=== PATIENT | female | born 1980 | race Caucasian/White ===

== ENCOUNTER 2024-04-12 14:21 | Emergency (ER) | payer OTHER, SELFPAY ==
[2024-04-12 14:30] VITALS: BP 161/95
[2024-04-12 15:11] LABS: Urine Albumin Trace (Neg - Trace); Urine Bilirubin Negative (Negative); Urine Character Clear (Clear); Urine Color Yellow; Urine Glucose Negative (Negative); Urine Ketone 2+ (Negative); Urine Leukocyte Trace (Negative); Urine Nitrite Negative (Negative); Urine Occult Blood Trace (Negative); Urine Urobilinogen Negative (Neg - 1+)
[2024-04-12 15:16] LABS: HCG, Serum Qualitative Screen Negative
[2024-04-12 15:19] LABS: ALT (SGPT) 24 U/L (0-35); AST (SGOT) 29 U/L (14-36); Albumin 4.4 g/dl (3.5-5.0); Alkaline Phosphatase 72 U/L (38-126); Blood Urea Nitrogen 15 mg/dl (7-17); Calcium 9.3 mg/dl (8.4-10.2); Carbon Dioxide 24 mmol/L (22-30); Chloride 105 mmol/L (98-107); Glucose 85 mg/dl (70-99); Lipase 63 U/L (23-300); Sodium 138 mmol/L (135-145); Total Bilirubin 0.8 mg/dl (0.2-1.3); Total Protein 7.3 g/dl (6.3-8.2); eGFR > 60.00
[2024-04-12 15:43] LABS: Urine Bacteria Few (Negative); Urine Mucus Many; Urine Red Blood Cell 0-2 /HPF (0-2); Urine Squamous Cell >30 /LPF (Few); Urine White Cell 0-2 /HPF (0-5)
[2024-04-12 16:27] VITALS: BP 139/81
[2024-04-12 16:41] LABS: % Basophils 0.2 % (0-2); % Immature Granulocytes 0.3 % (0-0.5); % Lymphocytes 26.1 % (20.5-51.1); % Monocytes 6.6 % (1.7-9.3); % Neutrophils 65.8 % (42.2-75.2); Absolute Eosinophils 0.1 10^3/uL (0-0.7); Absolute Monocytes 0.8 10^3/uL (0.1-0.6); Absolute Neutrophils 7.6 10^3/uL (1.4-6.5); Hematocrit 36.5 % (37.0-47.0); Hemoglobin 11.2 g/dL (12.0-16.0); Mean Corp Hgb Conc. 30.7 g/dL (33.0-37.0); Mean Corpuscular Hgb 17.8 pg (27.0-31.0); Mean Corpuscular Volume 57.9 fL (81.0-99.0); Mean Platelet Volume 8.9 fL (7.4-10.4); Nucleated Red Blood Cells % 0 %; Platelet Count 348 10^3/uL (130-400); Red Cell Dist. Width 20.3 % (11.5-14.5); White Blood Cell Count 11.6 10^3/uL (4.8-10.8)
[2024-04-12 17:00] VITALS: BP 121/67
--- NOTE | 2024-04-12 17:48 | ED.GENMED ---
History of Present Illness
<Moises Jameson PA-C - Last Filed: 04/13/24 14:57>
General
Chief Complaint: Abdominal Pain
Time Seen by Provider: 04/12/24 16:04
History of Present Illness
History of Present Illness:
44-year-old female with history of thalassemia trait and recurrent kidney stones presents to the emergency department for evaluation of right upper quadrant abdominal pain has been ongoing for approximately 10 days. She had an outpatient ultrasound
last week however does not have any results as of yet. Pain has been worsening, has limited her ability to eat and drink secondary to pain. Denies any associated fevers or chills. Denies excessive NSAID or alcohol use. Prior abdominal surgeries
include x 3 and tubal ligation. She has had nausea and diarrhea with no vomiting.
Past History
<Moises Jameson PA-C - Last Filed: 04/13/24 14:57>
Past History
ED Past Medical History: Asthma; Negative HTN, Hypercholesterolemia or NIDDM
ED Past Surgical History: (X 3)
Social History
Tobacco: Non-smoker
Alcohol: None
Drug: None
Personal:
Living: with family
Employment: Employed
Family History
Family History: CAD
Review of Systems
<DANE Lou Last Filed: 04/13/24 14:57>
Review of Systems
Allergies reviewed?: Yes
All Other Systems: ROS reviewed and negative except as documented in HPI and ROS
Phy Exam
<DANE Lou Last Filed: 04/13/24 14:57>
Physical Exam
Physical Exam:
GEN: Well appearing, NAD, WDWN
Eyes: PERRLA, EOMs intact, no scleral icterus
HENT: NCAT, oral mucosa moist
Lungs: CTAB, no wheezes, rales, rhonchi, normal chest wall excursion
Cardiac: RRR, no M/R/G, no peripheral edema. Radial pulses 2+ bilat
Abdomen: Obesity limits exam. Abdomen is focally tender to the epigastrium and right upper quadrant with no rigidity or peritoneal signs
Neuro: AO x 3,
MSK: No gross deformity or ecchymosis. No edema. No digital clubbing
Skin: No rashes, petechiae. Normal color, no pallor or jaundice.
Psych: Calm, cooperative, proper hygiene
Course
<Moises Jameson PA-C - Last Filed: 04/13/24 14:57>
Orders/Labs/Results
Orders:
Orders
04/12/24 14:33
Test Result ONCE
04/12/24 14:41
Comprehensive Metabolic Panel Urgent
HCG, Serum Qualitative Screen Urgent
Comment: Notify provider if positive test present
Lipase Urgent
04/12/24 14:59
Urinalysis Reflex To Culture Urgent
Date Specimen was Collected: 04/12/24
Time Specimen was Collected: 14:33
Urine Microscopic Reflex Cult Urgent
04/12/24 16:22
US Abdomen Complete/Upper Urgent
Comment:
Reason For Exam: RUQ pain
04/12/24 16:27
Complete Blood Count/With Diff Urgent
04/12/24 18:30
CT Abd/Pel (IV only)-DH only Urgent
Comment:
Reason For Exam: RUQ pain, neg US
04/12/24 21:38
Ketorolac [Toradol] 15 mg IV NOW STA
04/12/24 21:41
Tamsulosin [Flomax] 0.4 mg PO NOW STA
Abnormal Lab Results
04/12/24 04/12/24
14:59 16:27
WBC 11.6 H 10^3/uL
(4.8-10.8)
RBC 6.30 H 10^6/uL
(4.20-5.40)
Hgb 11.2 L g/dL
(12.0-16.0)
Hct 36.5 L %
(37.0-47.0)
MCV 57.9 L fL
(81.0-99.0)
MCH 17.8 L pg
(27.0-31.0)
MCHC 30.7 L g/dL
(33.0-37.0)
RDW 20.3 H %
(11.5-14.5)
Absolute Neuts (auto) 7.6 H 10^3/uL
(1.4-6.5)
Absolute Monos (auto) 0.8 H 10^3/uL
(0.1-0.6)
Urine Ketones 2+ A
(Negative)
Ur Occult Blood Reflex Trace A
(Negative)
Leukocyte Esterase Rfl Trace A
(Negative)
Urine Bacteria (Reflex) Few A
(Negative)
04/12/24 16:27
04/12/24 14:41
Vital Signs
Initial and Last Documented VS:
Initial Vital Signs
Temp Pulse Resp BP Pulse Ox
98.1 F 80 18 161/95 97
04/12/24 14:30 04/12/24 14:30 04/12/24 14:30 04/12/24 14:30 04/12/24 14:30
Last Documented Vital Signs
Temp Pulse Resp BP Pulse Ox
98.1 F 77 20 114/53 96
04/12/24 14:30 04/12/24 21:49 04/12/24 21:49 04/12/24 21:49 04/12/24 21:49
<Yumi Short, [employer] - Last Filed: 04/12/24 23:49>
Orders/Labs/Results
Orders:
Orders
04/12/24 14:33
Test Result ONCE
04/12/24 14:41
Comprehensive Metabolic Panel Urgent
HCG, Serum Qualitative Screen Urgent
Comment: Notify provider if positive test present
Lipase Urgent
04/12/24 14:59
Urinalysis Reflex To Culture Urgent
Date Specimen was Collected: 04/12/24
Time Specimen was Collected: 14:33
Urine Microscopic Reflex Cult Urgent
04/12/24 16:22
US Abdomen Complete/Upper Urgent
Comment:
Reason For Exam: RUQ pain
04/12/24 16:27
Complete Blood Count/With Diff Urgent
04/12/24 18:30
CT Abd/Pel (IV only)-DH only Urgent
Comment:
Reason For Exam: RUQ pain, neg US
04/12/24 21:38
Ketorolac [Toradol] 15 mg IV NOW STA
04/12/24 21:41
Tamsulosin [Flomax] 0.4 mg PO NOW STA
Abnormal Lab Results
04/12/24 04/12/24
14:59 16:27
WBC 11.6 H 10^3/uL
(4.8-10.8)
RBC 6.30 H 10^6/uL
(4.20-5.40)
Hgb 11.2 L g/dL
(12.0-16.0)
Hct 36.5 L %
(37.0-47.0)
MCV 57.9 L fL
(81.0-99.0)
MCH 17.8 L pg
(27.0-31.0)
MCHC 30.7 L g/dL
(33.0-37.0)
RDW 20.3 H %
(11.5-14.5)
Absolute Neuts (auto) 7.6 H 10^3/uL
(1.4-6.5)
Absolute Monos (auto) 0.8 H 10^3/uL
(0.1-0.6)
Urine Ketones 2+ A
(Negative)
Ur Occult Blood Reflex Trace A
(Negative)
Leukocyte Esterase Rfl Trace A
(Negative)
Urine Bacteria (Reflex) Few A
(Negative)
04/12/24 16:27
04/12/24 14:41
Vital Signs
Initial and Last Documented VS:
Initial Vital Signs
Temp Pulse Resp BP Pulse Ox
98.1 F 80 18 161/95 97
04/12/24 14:30 04/12/24 14:30 04/12/24 14:30 04/12/24 14:30 04/12/24 14:30
Last Documented Vital Signs
Temp Pulse Resp BP Pulse Ox
98.1 F 77 20 114/53 96
04/12/24 14:30 04/12/24 21:49 04/12/24 21:49 04/12/24 21:49 04/12/24 21:49
<Moises Jameson PA-C - Last Filed: 04/13/24 14:57>
MDM/Problems Addressed
MDM/Problems Addressed:
Ultrasound was repeated despite the pending results of the outpatient study due to worsening pain and concern for cholecystitis however this was gross unremarkable. Labs are reassuring, urinalysis shows no evidence for infection. Given her
persistent pain will obtain a CT of the abdomen and pelvis for further clarification. Case signed out to Bonnie Short NP pending CT results
<Yumi Short NP - Last Filed: 04/12/24 23:49>
MDM/Problems Addressed
MDM/Problems Addressed:
Ultrasound was repeated despite the pending results of the outpatient study due to worsening pain and concern for cholecystitis however this was gross unremarkable. Labs are reassuring, urinalysis shows no evidence for infection. Given her
persistent pain will obtain a CT of the abdomen and pelvis for further clarification. Case signed out to Bonnie Short [employer] pending CT results
Received pt from [facility]ARE[facility].
44-year-old female with history of thalassemia trait and recurrent kidney stones presents to the emergency department for evaluation of right upper quadrant abdominal pain has been ongoing for approximately 10 days. She had an outpatient ultrasound
last week however does not have any results as of yet. Pain has been worsening, has limited her ability to eat and drink secondary to pain. Denies any associated fevers or chills. Denies excessive NSAID or alcohol use. Prior abdominal surgeries
include x 3 and tubal ligation. She has had nausea and diarrhea with no vomiting.
CBC, CMP with no clinically significant abnormality
U/A Tr blood, no infection
Pt awaiting CT scan, states RUQ pain is 5/10, has been waxing and waning over past 10 days
9:[address] abd pelvis radiology report reviewed: IMPRESSION:
There are 2 calculi in the proximal right ureter measuring 2.3 mm and 5 mm, as described. However, without evidence of obstructive uropathy.
Bilateral nonobstructing intrarenal calculi, left greater than right.
The appendix is normal.
No acute inflammatory process within the abdomen or pelvis.
Hepatomegaly, 21 cm in long axis, with fatty infiltration.
Possible 3 cm uterine fibroid.
Pt informed, pain remains 5/10. IV Toradol given
Notified Urologist Dr. Meza that pt would be calling office tomorrow and she should be seen sooner rather than later due to persistent lengthy pain, size of stones and high position. He states he will 'keep an eye out for her.'
Started on Flomax
Rx for Motrin 800 mg, Flomax and [place] sent to pt pharmacy.
She is comfortable for discharge and much appreciative of the care.
Pt ambulated out with normal gait at discharge
<Yumi Short [employer] - Last Filed: 04/12/24 23:49>
*Critical Care Note
Total Time (30-74mins, 75-104mins- exclusive of procedures): Not Applicable
ED Attending Note
<Moises Jameson PA-C - Last Filed: 04/13/24 14:57>
-
Portions of this chart may have been created with voice recognition software.� Occasional wrong word or��sound alike� substitutions may have occurred due to the inherent limitations of voice recognition software.
Discharge Plan
Departure
Patient Disposition: Home (Routine Discharge)
Date of Disposition: 04/12/24
Time of Disposition: 21:38
Patient with high blood pressure during this ER visit?: No
Condition: Fair
Discharge Problem:
Right sided abdominal pain, Calculus of proximal right ureter
Instructions: Kidney Stones (DC), Abdominal Pain
Prescriptions:
New
tamsulosin [Flomax] 0.4 mg capsule
0.4 mg PO DAILY Qty: 7 0RF
ibuprofen 800 mg tablet
800 mg PO Q8H PRN (Reason: Pain) Qty: 30 0RF
hydrocodone-acetaminophen 5-325 mg tablet
1 tab PO Q6H PRN (Reason: Pain) Qty: 14 0RF
No Action
folic acid 1 mg Tablet
1 mg PO DAILY
Nattokinase 50 mg Capsule
100 mg PO DAILY
levalbuterol tartrate [Xopenex HFA] 45 mcg/actuation HFA aerosol inhaler
2 inh inhalation Q6H PRN (Reason: shortness of breath) Qty: 15 2RF
Dulera 200-5 mcg/actuation HFA aerosol inhaler
1 puff inhalation BID Qty: 8.8 0RF
albuterol sulfate 2.5 mg /3 mL (0.083 %) solution for nebulization
2.5 mg inhalation QID PRN (Reason: shortness of breath or wheezing) Qty: 180 0RF
(DME) nebulizer and compressor Device
See Rx Instructions .Route Qty: 1 0RF
Rx Instructions:
As directed
Referrals:
Cirilo Bai, [Family Provider] -
Ari Meza MD [Active] - Next open appointment
Activity Restrictions/Additional Instructions:
As we discussed, call the urology office tomorrow and make next available appointment.
Return here immediately for fever, chills, vomiting, pain unrelieved with the pain medication or feeling sicker in any way.
Drink plenty of fluids
I sent a prescription to your pharmacy for Ibuprofen 800 mg, to take for mild to moderate pain, Flomax to take daily for 7 days, [place] (Hydrocodone) if needed for worse pain.
Interventions
Interventions:
*Risk Screen - Suicide Last Done: 04/12/24 14:30
*General Assessment Last Done: 04/12/24 14:30
*Neglect/Abuse Screening Last Done: 04/12/24 14:30
ED- Fall Risk Assessment Last Done: 04/12/24 21:58
*ED COVID-19 Vaccine History Last Done: 04/12/24 21:58
*Nursing Disposition Last Done: 04/12/24 21:58
YG-Dughmy-Zeguuyxohs Assessment Last Done: 04/12/24 19:52
Discharge Date and Time
Discharge Date/Time: 04/12/24 21:59
Print Language: SPANISH
[2024-04-12 19:26] VITALS: BP 115/70
[2024-04-12] MEDS: FLOMAX 0.4 MG PO (21:46)
[2024-04-12] MEDS: TORADOL 15 MG IV (21:46)
[2024-04-12 21:49] VITALS: BP 114/53
== END 2024-04-12 21:59 | disposition home or self-care (01) ==
LOC: EMR 14:21
PROVIDERS: EMERGENCY PHYSICIAN Emergency Medicine; FAMILY PHYSICIAN Family Medicine
DX: R10.11 Right upper quadrant pain (principal); D56.3 Thalassemia minor; N20.2 Calculus of kidney with calculus of ureter
CPT/HCPCS: 99285; 96374; 74177; 76700; 80053; 81003; 81015; 83690; 84703; 85025; Q9967

== ENCOUNTER 2024-08-15 16:55 | Emergency (ER) | payer OTHER, SELFPAY ==
[2024-08-15 17:03] VITALS: BP 159/99
[2024-08-15 17:21] LABS: % Basophils 0.1 % (0-2); % Eosinophils 1.4 % (0-6); % Immature Granulocytes 0.3 % (0-0.5); % Lymphocytes 29.9 % (20.5-51.1); % Monocytes 6.6 % (1.7-9.3); % Neutrophils 61.7 % (42.2-75.2); Absolute Eosinophils 0.1 10^3/uL (0-0.7); Absolute Lymphocytes 2.9 10^3/uL (1.2-3.4); Absolute Monocytes 0.6 10^3/uL (0.1-0.6); Absolute Neutrophils 5.9 10^3/uL (1.4-6.5); Hematocrit 39.1 % (37.0-47.0); Hemoglobin 11.4 g/dL (12.0-16.0); Mean Corp Hgb Conc. 29.2 g/dL (33.0-37.0); Mean Corpuscular Hgb 17.5 pg (27.0-31.0); Mean Corpuscular Volume 60.1 fL (81.0-99.0); Mean Platelet Volume 8.5 fL (7.4-10.4); Nucleated Red Blood Cells % 0 %; Platelet Count 322 10^3/uL (130-400); Red Blood Cell Count 6.51 10^6/uL (4.20-5.40); Red Cell Dist. Width 20.3 % (11.5-14.5); White Blood Cell Count 9.6 10^3/uL (4.8-10.8)
[2024-08-15 17:48] LABS: Troponin I < 0.012 ng/ml
--- NOTE | 2024-08-15 17:50 | ED.GENMED ---
History of Present Illness
General
Chief Complaint: Chest Pain
Source: patient
Exam Limitations: none
Time Seen by Provider: 08/15/24 17:50
History of Present Illness
History of Present Illness:
44-year-old female complaining of intermittent chest pain and shortness of breath somewhat with exertion over weeks. Also concerned because she has some left [place] pain and was told with the varicose veins she should be checked for a blood clot. No
pleuritic pain. No fever cough or other complaints. She has had intermittent chest pain in the past.
Past History
Past History
ED Past Medical History: Asthma and GERD; Negative HTN, Hypercholesterolemia or NIDDM
ED Past Surgical History: (X 3) and Gynecological
Social History
Tobacco: Non-smoker
Alcohol: None
Drug: None
Personal:
Living: with family
Employment: Employed
Family History
Family History: CAD
Review of Systems
Review of Systems
All Other Systems: Not applicable
Constitutional: Denies fever or chills
ABD/GI: Reports no symptoms
Phy Exam
Physical Exam
Physical Exam:
GENERAL: Alert and oriented in no apparent distress
EYE: Orbits normal.
NECK: Supple, no significant adenopathy.
ENT: Pharynx without erythema
CARDIAC: Regular rate and rhythm without any obvious murmurs.
LUNGS: Clear breath sounds,normal
ABDOMEN: Soft, without focal tenderness or distention. Elevated BMI
NEUROLOGICAL: Alert and oriented , grossly non-focal
SKIN: Warm and dry, no rash or lesion, no discoloration, skin intact.
MUSCULOSKELETAL: No edema,no deformity.Good color. Noninflamed superficial varicose veins. No cord. No erythema. Good distal pulses and color
PSYCH: Normal and appropriate interaction.
Scores
Heart Score for Chest Pain Patients
STEMI patient?: No
History: Slightly or Non-Suspicious
ECG: Normal
Age: </= 45 years
Risk Factors: 1 or 2 Risk Factors
Troponin: </= Normal Limit
Heart Score for Chest Pain Patients: 1
Heart Score Risk: 2.5% MACE over next 6 weeks
Course
Orders/Labs/Results
Orders:
Orders
08/15/24 16:55
Electrocardiogram (*1) Urgent
Reason for Study: Chest Pain
EKG- Treatment ONCE
08/15/24 17:15
CMP [Comprehensive Metabolic Panel] Urgent
Complete Blood Count/With Diff Urgent
Troponin I Urgent
08/15/24 18:06
CT Chest Pe Study Urgent
Comment:
Reason For Exam: Chest pain/short of breath
IV Insert/Care/Rem.- Treatment PRN
US Periph Venous LOWER Ext Ousmane Urgent
Comment:
Reason For Exam: Bilateral leg pain/short of breath
Abnormal Lab Results
08/15/24
17:15
RBC 6.51 H 10^6/uL
(4.20-5.40)
Hgb 11.4 L g/dL
(12.0-16.0)
MCV 60.1 L fL
(81.0-99.0)
MCH 17.5 L pg
(27.0-31.0)
MCHC 29.2 L g/dL
(33.0-37.0)
RDW 20.3 H %
(11.5-14.5)
08/15/24 17:15
08/15/24 17:15
Vital Signs
Initial and Last Documented VS:
Initial Vital Signs
Temp Pulse Resp BP Pulse Ox
98.0 F 98 18 159/99 100
08/15/24 17:03 08/15/24 17:03 08/15/24 17:03 08/15/24 17:03 08/15/24 17:03
Last Documented Vital Signs
Temp Pulse Resp BP Pulse Ox
98.0 F 83 23 129/74 97
08/15/24 17:03 08/15/24 21:00 08/15/24 21:00 08/15/24 21:00 08/15/24 21:00
MDM/Problems Addressed
Differential Diagnosis Includes:
Minimal cardiac risk factors with just family history. Ongoing symptoms for 2 weeks with a normal EKG and negative troponin. From a cardiac standpoint reasonable for outpatient follow-up. Doubt pulmonary emboli although CT scan and ultrasound
pending. If negative patient is stable for discharge to follow-up
*Radiology
Radiology exam reviewed: radiology read reviewed (Ultrasound negative. CT angio negative)
*Pulse Oximetry
Patient hypoxic: no
*EKG
Interpreted by ED Provider?: Yes
Interpretation: normal
Comparison EKG: no changes
Heart Rate: 88
Rate: normal
Rhythm: sinus and sinus arrhythmia
[place]: normal axis
Interval: normal interval
QRS Pattern: normal QRS
Ischemia: no ischemia
*Critical Care Note
Total Time (30-74mins, 75-104mins- exclusive of procedures): Not Applicable
Data Reviewed
Review of Other/Old Records Reveals: Labs, Records and Testing
Update Note
Update Note:
Patient with very atypical symptoms. Prolonged symptoms for weeks. Medically stable. Because of the prolonged nature of symptoms do not feel repeat troponin was necessary. Will discharge to follow-up with cardiology
ED Attending Note
-
Portions of this chart may have been created with voice recognition software.� Occasional wrong word or��sound alike� substitutions may have occurred due to the inherent limitations of voice recognition software.
Discharge Plan
Departure
Patient Disposition: Home (Routine Discharge)
Date of Disposition: 08/15/24
Time of Disposition: 21:04
Patient with high blood pressure during this ER visit?: Yes
Discharge Problem:
Chest pain/dyspnea
Instructions: Shortness of Breath, Adult ED, Chest Pain DCA Follow Up, BLOOD PRESSURE
Prescriptions:
No Action
albuterol sulfate 2.5 mg /3 mL (0.083 %) solution for nebulization
2.5 mg inhalation QID PRN (Reason: shortness of breath or wheezing) Qty: 180 0RF
(DME) nebulizer and compressor Device
See Rx Instructions .Route Qty: 1 0RF
Rx Instructions:
As directed
vitamin B complex Capsule
1 cap PO DAILY
omeprazole magnesium [Prilosec OTC] 20 mg Tablet,Delayed Release (Dr/Ec)
40 mg PO DAILY
Referrals:
Cirilo Bai, DO [Family Provider] - Follow up in 2-3 days
Interventions
Interventions:
*Risk Screen - Suicide Last Done: 08/15/24 17:03
*General Assessment Last Done: 08/15/24 18:22
*Neglect/Abuse Screening Last Done: 08/15/24 17:03
ED- Fall Risk Assessment Last Done: 08/15/24 19:19
*ED COVID-19 Vaccine History Last Done: 08/15/24 17:03
*Nursing Disposition Last Done: 08/15/24 21:12
ED- Cardiac Assessment Last Done: 08/15/24 19:19
Discharge Date and Time
Discharge Date/Time: 08/15/24 21:12
Print Language: SLOVENIAN
[2024-08-15 17:59] LABS: ALT (SGPT) 25 U/L (0-35); AST (SGOT) 23 U/L (14-36); Albumin 4.4 g/dl (3.5-5.0); Alkaline Phosphatase 87 U/L (38-126); Blood Urea Nitrogen 17 mg/dl (7-17); Calcium 9.2 mg/dl (8.4-10.2); Carbon Dioxide 28 mmol/L (22-30); Chloride 103 mmol/L (98-107); Glucose 93 mg/dl (70-99); Potassium 4.2 mmol/L (3.5-5.1); Sodium 142 mmol/L (135-145); Total Bilirubin 0.3 mg/dl (0.2-1.3); Total Protein 7.3 g/dl (6.3-8.2); eGFR > 60.00
[2024-08-15 18:11] VITALS: BMI 56.1
[2024-08-15 19:15] VITALS: BP 142/87
[2024-08-15 20:18] VITALS: BP 142/77
[2024-08-15 21:00] VITALS: BP 129/74
== END 2024-08-15 21:12 | disposition home or self-care (01) ==
LOC: EMR 16:55
PROVIDERS: EMERGENCY PHYSICIAN Emergency Medicine; FAMILY PHYSICIAN Family Medicine
DX: R07.89 Other chest pain (principal); M79.662 Pain in left lower leg; J45.909 Unspecified asthma, uncomplicated; K21.9 Gastro-esophageal reflux disease without esophagitis
CPT/HCPCS: 99284; 71275; 80053; 84484; 85025; 93005; 93970; Q9967

== ENCOUNTER 2024-09-12 20:30 | Emergency (ER) | payer OTHER, SELFPAY ==
[2024-09-12 20:35] VITALS: BP 140/96
[2024-09-13 00:23] VITALS: BP 143/92
--- NOTE | 2024-09-13 00:38 | ED.GENMED ---
History of Present Illness
<CHAU Rae - Last Filed: 09/13/24 04:39>
General
Chief Complaint: Blood Pressure Problem
Source: patient
Exam Limitations: none
Time Seen by Provider: 09/13/24 00:37
Nursing documentation reviewed up to this point in time: agreed with
History of Present Illness
History of Present Illness:
Pt is a 44 yo F with PMH of HTN, asthma and GERD who presents to the ED with dizziness, SOB, chest pain and changes in vision x 1 day. Pt states she started lisinopril last week and went to care management assistant- Dr. Soto today about same complaints but
they have not gotten back to her/changed her medications. Pt also has had a cough x 1 month, which she describes as productive. Pt describes the change in vision as 'blurry.' Pt went to care management assistant earlier this month for a cardiac stress test that
revealed no ischemia with stress. Pt denies MISHRA, congestion, sore throat, fever, nausea, vomiting, diarrhea, changes in urination, abd pain.
Past History
<CHAU Rae - Last Filed: 09/13/24 04:39>
Past History
ED Past Medical History: Asthma and GERD; Negative HTN, Hypercholesterolemia or NIDDM
ED Past Surgical History: (X 3) and Gynecological
Social History
Tobacco: Non-smoker
Alcohol: None
Drug: None
Personal:
Living: with family
Employment: Employed
Family History
Family History: CAD
Phy Exam
<CHAU Rae - Last Filed: 09/13/24 04:39>
General Physical Exam
General Presentation: well appearing and no apparent distress
General age: appears stated age
General Skin: warm and dry
General Habitus: normal and obese
General Mental: alert
General Hydration: appears well hydrated
ENT Exam
ENT Exam: EOMI
Eye Exam
Eye Exam: PERRL
Cardiovascular Exam
Cardiovascular Exam: regular rate/rhythm and no murmur
Pulmonary Exam
Pulmonary Exam: lungs clear and no respiratory distress
Gastrointestinal Exam
Gastrointestinal Exam: non tender, soft and non distended
Neurological Exam
Neurological Exam: alert, oriented x3, no motor deficits, no sensory deficits and speech normal
Course
<Sanaz Varner, [facility] - Last Filed: 09/13/24 04:39>
Orders/Labs/Results
Orders:
Orders
09/12/24 20:33
Electrocardiogram (*1) Urgent
Reason for Study: Vertigo / Dizzy
CMP [Comprehensive Metabolic Panel] Urgent
09/12/24 20:34
EKG- Treatment ONCE
Complete Blood Count/With Diff Urgent
09/13/24 00:58
CR Chest - 2 Views Urgent
Comment:
Reason For Exam: cough, SOB
09/13/24 00:59
Troponin I Urgent
09/13/24 02:05
CT Head W/o Iv Contrast Urgent
Comment:
Reason For Exam: mishra, blurry vision
Abnormal Lab Results
09/13/24
00:59
RBC 6.01 H 10^6/uL
(4.20-5.40)
Hgb 10.9 L g/dL
(12.0-16.0)
Hct 36.3 L %
(37.0-47.0)
MCV 60.4 L fL
(81.0-99.0)
MCH 18.1 L pg
(27.0-31.0)
MCHC 30.0 L g/dL
(33.0-37.0)
RDW 19.8 H %
(11.5-14.5)
BUN 19 H mg/dl
(7-17)
Glucose 105 H mg/dl
(70-99)
09/13/24 00:59
09/13/24 00:59
Vital Signs
Initial and Last Documented VS:
Initial Vital Signs
Temp Pulse Resp BP Pulse Ox
98.4 F 86 26 140/96 100
09/12/24 20:35 09/12/24 20:35 09/12/24 20:35 09/12/24 20:35 09/12/24 20:35
Last Documented Vital Signs
Temp Pulse Resp BP Pulse Ox
97.8 F 76 16 126/70 95
09/13/24 00:00 09/13/24 04:00 09/13/24 04:00 09/13/24 04:00 09/13/24 02:00
<Nickolas Fernandes, - Last Filed: 09/13/24 04:15>
Orders/Labs/Results
Orders:
Orders
09/12/24 20:33
Electrocardiogram (*1) Urgent
Reason for Study: Vertigo / Dizzy
CMP [Comprehensive Metabolic Panel] Urgent
09/12/24 20:34
EKG- Treatment ONCE
Complete Blood Count/With Diff Urgent
09/13/24 00:58
CR Chest - 2 Views Urgent
Comment:
Reason For Exam: cough, SOB
09/13/24 00:59
Troponin I Urgent
09/13/24 02:05
CT Head W/o Iv Contrast Urgent
Comment:
Reason For Exam: mishra, blurry vision
Abnormal Lab Results
24
00:59
RBC 6.01 H 10^6/uL
(4.20-5.40)
Hgb 10.9 L g/dL
(12.0-16.0)
Hct 36.3 L %
(37.0-47.0)
MCV 60.4 L fL
(81.0-99.0)
MCH 18.1 L pg
(27.0-31.0)
MCHC 30.0 L g/dL
(33.0-37.0)
RDW 19.8 H %
(11.5-14.5)
BUN 19 H mg/dl
(7-17)
Glucose 105 H mg/dl
(70-99)
09/13/24 00:59
09/13/24 00:59
Vital Signs
Initial and Last Documented VS:
Initial Vital Signs
Temp Pulse Resp BP Pulse Ox
98.4 F 86 26 140/96 100
09/12/24 20:35 09/12/24 20:35 09/12/24 20:35 09/12/24 20:35 09/12/24 20:35
Last Documented Vital Signs
Temp Pulse Resp BP Pulse Ox
97.8 F 76 16 126/70 95
09/13/24 00:00 09/13/24 04:00 09/13/24 04:00 09/13/24 04:00 09/13/24 02:00
<CHAU Rae - Last Filed: 09/13/24 04:39>
MDM/Problems Addressed
Differential Diagnosis Includes:
adverse reaction to medication
Chronic conditions affecting care: HTN and Asthma
<CHAU Rae - Last Filed: 09/13/24 04:39>
*EKG
Interpreted by ED Provider?: Yes
Interpretation: normal
Comparison EKG: no changes (no significant change when compared to 15 aug 2024)
Heart Rate: 74
Rate: normal
Rhythm: sinus
Holden: normal axis
Interval: normal interval
QRS Pattern: normal QRS
Ischemia: no ischemia
*Critical Care Note
Total Time (30-74mins, 75-104mins- exclusive of procedures): Not Applicable
<Nickolas Fernandes DO - Last Filed: 09/13/24 04:15>
Update Note
Update Note:
Additional Information (per [facility]):
CT head without IV contrast
IMPRESSION:
No hemorrhage or other acute intracranial abnormality.
Finalized at 4 AM EST
ED Attending Note
<CHAU Rae - Last Filed: 09/13/24 04:39>
-
Portions of this chart may have been created with voice recognition software.� Occasional wrong word or��sound alike� substitutions may have occurred due to the inherent limitations of voice recognition software.
<Nickolas Fernandes DO - Last Filed: 09/13/24 04:15>
ED Attending Note
Patient seen and examined by attending physician: Yes
I performed the substantive portion of visit, reviewed & personally made and approve the management plan that is documented in note by myself or DEEDEE.: Yes
ED Attending Note:
Pleasant 44-year-old female presents to the emergency department with chest pain shortness of breath and dizziness with blurry vision that have been present for the last week. Patient had high blood pressure was seen by her care management assistant's nurse
practitioner. Dr. Soto's nurse practitioner put her on losartan. Since her high blood pressure episode she has been having symptoms have waxed and waned. Patient has also reported a cough for the last month. She describes as productive.
Patient had a cardiac stress test without issue. Patient reports no headache congestion sore throat fever or any current blurry vision.
Discharge Plan
Departure
Patient Disposition: Home (Routine Discharge)
Date of Disposition: 09/13/24
Time of Disposition: 04:12
Patient with high blood pressure during this ER visit?: Yes
Condition: Good
Discharge Problem:
Hypertension
Instructions: High Blood Pressure (DC), BLOOD PRESSURE
Prescriptions:
No Action
albuterol sulfate 2.5 mg /3 mL (0.083 %) solution for nebulization
2.5 mg inhalation QID PRN (Reason: shortness of breath or wheezing) Qty: 180 0RF
(DME) nebulizer and compressor Device
See Rx Instructions .Route Qty: 1 0RF
Rx Instructions:
As directed
vitamin B complex Capsule
1 cap PO DAILY
omeprazole magnesium [Prilosec OTC] 20 mg Tablet,Delayed Release (Dr/Ec)
40 mg PO DAILY
Referrals:
Cirilo Bai, DO [Family Provider] -
Activity Restrictions/Additional Instructions:
It was a pleasure meeting you and taking part in your care. We hope for your continued healing and wellness.
Please read discharge instructions in their entirety. However, they are for general education and may not describe your exact diagnosis at discharge. Information on your ER visit and medical conditions were discussed with you along with appropriate
follow up information...
If indicated, please take your medications as instructed and indicated on discharge paperwork.
Please schedule a follow up appointment as directed. Call to schedule an appointment
Please return to the emergency department with ANY change in, persisting, or worsening of symptoms. If any of your symptoms do not improve, or persist, or become more severe within 6-12 hours, please return to the emergency department for further
care.
Please return to the emergency department if you develop a headache, neck pain/stiffness, fever greater than 100.4F, chest pain, shortness of breath, persistent nausea, vomiting, slurred speech, difficulty walking, numbness/tingling, weakness, signs
of infection or any other symptoms that are worrisome to you.
If you have any questions or concerns please do not hesitate to call the Hospital at or E-mail me directly at [email or web address]
Interventions
Interventions:
*Risk Screen - Suicide Last Done: 09/12/24 20:35
*General Assessment Last Done: 09/13/24 00:26
*Neglect/Abuse Screening Last Done: 09/12/24 20:35
ED- Fall Risk Assessment Last Done: 09/13/24 00:30
*ED COVID-19 Vaccine History Last Done: 09/13/24 00:26
*Nursing Disposition Last Done: 09/13/24 04:36
ED- Cardiac Assessment Last Done: 09/13/24 00:27
ED- Neurological Assessment Last Done: 09/13/24 00:27
ED- Pulmonary Assessment Last Done: 09/13/24 00:27
Discharge Date and Time
Print Language: KYRGYZ
[2024-09-13 01:01] VITALS: BP 153/93
[2024-09-13 01:10] LABS: % Basophils 0.3 % (0-2); % Eosinophils 2.4 % (0-6); % Immature Granulocytes 0.2 % (0-0.5); % Lymphocytes 38.3 % (20.5-51.1); % Neutrophils 51.8 % (42.2-75.2); Absolute Eosinophils 0.2 10^3/uL (0-0.7); Absolute Lymphocytes 3.4 10^3/uL (1.2-3.4); Absolute Monocytes 0.6 10^3/uL (0.1-0.6); Absolute Neutrophils 4.6 10^3/uL (1.4-6.5); Hematocrit 36.3 % (37.0-47.0); Hemoglobin 10.9 g/dL (12.0-16.0); Mean Corpuscular Hgb 18.1 pg (27.0-31.0); Mean Corpuscular Volume 60.4 fL (81.0-99.0); Mean Platelet Volume 8.9 fL (7.4-10.4); Nucleated Red Blood Cells % 0 %; Platelet Count 303 10^3/uL (130-400); Red Blood Cell Count 6.01 10^6/uL (4.20-5.40); Red Cell Dist. Width 19.8 % (11.5-14.5)
[2024-09-13 01:34] LABS: Troponin I < 0.012 ng/ml
[2024-09-13 01:36] LABS: ALT (SGPT) 27 U/L (0-35); AST (SGOT) 25 U/L (14-36); Albumin 4.1 g/dl (3.5-5.0); Alkaline Phosphatase 82 U/L (38-126); Blood Urea Nitrogen 19 mg/dl (7-17); Carbon Dioxide 26 mmol/L (22-30); Chloride 103 mmol/L (98-107); Glucose 105 mg/dl (70-99); Potassium 4.4 mmol/L (3.5-5.1); Sodium 138 mmol/L (135-145); Total Bilirubin 0.3 mg/dl (0.2-1.3); Total Protein 7.1 g/dl (6.3-8.2); eGFR > 60.00
[2024-09-13 02:00] VITALS: BP 150/91
[2024-09-13 03:00] VITALS: BP 132/61
[2024-09-13 04:00] VITALS: BP 126/70
[2024-09-13 04:36] VITALS: BP 126/70
== END 2024-09-13 04:38 | disposition home or self-care (01) ==
LOC: EMR 20:30
PROVIDERS: Emergency Medicine; EMERGENCY PHYSICIAN Student in an Organized Health Care Education/Training Program; FAMILY PHYSICIAN Family Medicine
DX: I10 Essential (primary) hypertension (principal); R07.9 Chest pain, unspecified; R42 Dizziness and giddiness; H53.8 Other visual disturbances; R06.02 Shortness of breath; R05.9 Cough, unspecified; J45.909 Unspecified asthma, uncomplicated; K21.9 Gastro-esophageal reflux disease without esophagitis
CPT/HCPCS: 99285; 70450; 71046; 80053; 84484; 85025; 93005

== ENCOUNTER 2025-05-10 19:10 | Emergency (ER) | payer OTHER, SELFPAY ==
[2025-05-10 19:18] VITALS: BP 158/92
[2025-05-10 19:31] LABS: Hematocrit 38.2 % (37.0-47.0); Hemoglobin 11.2 g/dL (12.0-16.0); Mean Corp Hgb Conc. 29.3 g/dL (33.0-37.0); Mean Corpuscular Volume 58.3 fL (81.0-99.0); Nucleated Red Blood Cells % 0 %; Platelet Count 329 10^3/uL (130-400); Red Cell Dist. Width 19.6 % (11.5-14.5)
[2025-05-10 19:49] LABS: ALT (SGPT) 24 U/L (0-35); AST (SGOT) 21 U/L (14-36); Albumin 4.5 g/dl (3.5-5.0); Alkaline Phosphatase 68 U/L (38-126); Blood Urea Nitrogen 22 mg/dl (7-17); Calcium 9.5 mg/dl (8.4-10.2); Carbon Dioxide 29 mmol/L (22-30); Chloride 104 mmol/L (98-107); Glucose 93 mg/dl (70-99); Lipase 91 U/L (23-300); Potassium 4.5 mmol/L (3.5-5.1); Sodium 139 mmol/L (135-145); Total Protein 7.8 g/dl (6.3-8.2); eGFR > 60.00
--- NOTE | 2025-05-11 00:15 | ED.GENMED ---
History of Present Illness
General
Chief Complaint: Abdominal Pain
Source: patient
Exam Limitations: none
Time Seen by Provider: 05/10/25 23:55
Nursing documentation reviewed up to this point in time: agreed with
History of Present Illness
History of Present Illness:
see MDM
Past History
Past History
ED Past Medical History: Asthma and GERD; Negative HTN, Hypercholesterolemia or NIDDM
ED Past Surgical History: (X 3) and Gynecological
Social History
Tobacco: Non-smoker
Alcohol: None
Drug: None
Personal:
Living: with family
Employment: Employed
Family History
Family History: CAD
Review of Systems
Review of Systems
Allergies reviewed?: Yes
All Other Systems: Not applicable
Phy Exam
Physical Exam
Physical Exam:
GENERAL: Alert , in no apparent distress
EYE: pupils equal and reactive
NECK: Supple
ENT: o/p clr, mmm.
CARDIAC: Regular rate and rhythm .
LUNGS: Clear breath sounds bilaterally, no acute respiratory distress, no wheezes/rales/rhonchi
ABDOMEN: Soft, mild right upper quadrant tenderness, positive Ruiz sign, no r/g, no cvat, normal bowel sounds
NEUROLOGICAL: Alert and oriented, no focal neuro deficits
SKIN: Warm and dry, skin intact.
MUSCULOSKELETAL: No edema, well perfused. neg bhakti's sign
PSYCH: Normal and appropriate interaction.
Course
Orders/Labs/Results
Orders:
Orders
05/10/25 19:24
Complete Blood Count/With Diff Urgent
Comprehensive Metabolic Panel Urgent
Lipase Urgent
05/11/25 00:10
Electrocardiogram (*1) Urgent
Reason for Study: Abdominal Pain
EKG- Treatment ONCE
Ketorolac [Toradol] 30 mg IV NOW STA
US Abdomen Complete/Upper Urgent
Comment:
Reason For Exam: RUQ pain
05/11/25 00:11
CR Chest - 2 Views Urgent
Comment:
Reason For Exam: R lower chest pain/ruq pain
05/11/25 00:25
Troponin I Urgent
05/11/25 01:06
D-Dimer Urgent
05/11/25 03:37
Mag Hydrox/Al Hydrox/Simeth [Maalox] 30 ml Phenobarb/Hyoscy/Atropine/Scop [] 10 ml Viscous Lidocaine 2% [Xylocaine Viscous Cup] 10 ml PO NOW
05/11/25 03:50
Phenobarb/Hyoscy/Atropine/Scop [] 10 ml .ROUTE .STK-MED ONE
05/11/25 03:51
Mag Hydrox/Al Hydrox/Simeth [Maalox] 30 ml .ROUTE .STK-MED ONE
Viscous Lidocaine 2% [Xylocaine Viscous Cup] 15 ml .ROUTE .STK-MED ONE
Abnormal Lab Results
05/10/25
19:24
WBC 11.5 H 10^3/uL
(4.8-10.8)
RBC 6.55 H 10^6/uL
(4.20-5.40)
Hgb 11.2 L g/dL
(12.0-16.0)
MCV 58.3 L fL
(81.0-99.0)
MCH 17.1 L pg
(27.0-31.0)
MCHC 29.3 L g/dL
(33.0-37.0)
RDW 19.6 H %
(11.5-14.5)
Absolute Neuts (auto) 7.2 H 10^3/uL
(1.4-6.5)
Absolute Monos (auto) 0.8 H 10^3/uL
(0.1-0.6)
BUN 22 H mg/dl
(7-17)
05/10/25 19:24
05/10/25 19:24
Vital Signs
Initial and Last Documented VS:
Initial Vital Signs
Temp Pulse Resp BP Pulse Ox
37.0 C 89 16 158/92 98
05/10/25 19:18 05/10/25 19:18 05/10/25 19:18 05/10/25 19:18 05/10/25 19:18
Last Documented Vital Signs
Temp Pulse Resp BP Pulse Ox
37.0 C 74 16 152/84 96
05/10/25 19:18 05/11/25 05:05 05/11/25 05:05 05/11/25 05:05 05/11/25 05:05
MDM/Problems Addressed
MDM/Problems Addressed:
Note:
CHIEF COMPLAINT(S)
Right upper quadrant abdominal pain.
HISTORY OF PRESENT ILLNESS
The patient is a 45-year-old female who presents with right upper quadrant abdominal pain that began today around 2 PM. She reports eating a small roast beef sandwich at 11:30 AM prior to the onset of pain. The pain is intermittent but persistent,
with episodes of increased intensity. The pain radiates to her shoulder and back. The patient retains her gallbladder and has a history of kidney stones, but she describes this pain as different, noting it feels sharper. She rates her pain as
reaching an eight or nine out of ten at its worst earlier today. The patient denies any current vomiting but mentions experiencing chills prior to the onset of abdominal pain. 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 She has taken her usual dose of omeprazole today but has not taken any other medications for pain relief.
the past few days she has also had some chest discomfort that she wasn't sure what it ias but it wasn't significant. no cardiac history
denies exertional cp, sob, h/o dvt/pe, recent travel
earlier today when pain was more severe, it was exacerbated by deep breathing
now she can breathe normally
PAST MEDICAL AND SURIGICAL HISTORY
The patient is on omeprazole for gastroesophageal reflux disease.
SOCIAL HISTORY
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
MEDICATIONS
Omeprazole as needed for gastroesophageal reflux disease.
REVIEW OF SYSTEMS
- Abdominal: Right upper quadrant intermittent sharp pain radiating to shoulder and back.
- Neurological: Reports experiencing chills prior to onset of pain.
PHYSICAL EXAM
- General: Tender in the right upper quadrant.
Nursing notes reviewed and vital signs reviewed.
PROBLEM LIST
Acute:
- Right upper quadrant abdominal pain.
- Chills.
PLAN
The patient will receive an ultrasound to evaluate for potential gallstones, as this is the most sensitive test for biliary conditions. Pain management will include Toradol administered intramuscularly to mitigate the symptoms without sedation. An
electrocardiogram (ECG) will be performed as a precautionary measure due to the nature of the pain and potential cardiac concerns. If the ECG returns abnormal, cardiac enzyme testing (Troponin) will be conducted to rule out any cardiac issues.
DIFFERENTIAL DIAGNOSIS
The Differential Diagnosis includes, in no particular order and is not limited to:
1. Cholelithiasis (Gallstones)
2. Biliary colic
3. Cholecystitis
4. Peptic ulcer disease
5. Pancreatitis
6. Hepatitis
7. Gastroesophageal reflux disease
8. Myocardial ischemia
9. Hepatic abscess
10. Right lower lobe pneumonia
CARE-UPDATE
05/11/25 - 03:26
The ultrasound showed a normal gallbladder and biliary system, with a mildly fatty liver, likely diet-related. No abnormalities were found in the kidneys, spleen, or lungs, and both the D-Dimer and cardiac tests were negative, ruling out heart
attack, blood clot, pneumonia, gallbladder infection, or gallstones. Symptoms do not strongly suggest acid reflux, though the patient is on omeprazole, and an endoscopy has been done. Plan to administer a GI cocktail to see if it eases stomach
discomfort. Omeprazole dosage to be increased to twice daily for a week. If no improvement is noted after 30 minutes post-GI cocktail, a CT scan of the abdomen is to be considered. Discussed possible gastritis or ulcer as potential causes of
symptoms.
*Pulse Oximetry
SaO2: 98
Oxygen Mode of Delivery: Room air
ED Attending Note
-
Portions of this chart may have been created with voice recognition software.� Occasional wrong word or��sound alike� substitutions may have occurred due to the inherent limitations of voice recognition software.
Discharge Plan
Departure
Patient Disposition: Home (Routine Discharge)
Date of Disposition: 05/11/25
Time of Disposition: 04:40
Patient with high blood pressure during this ER visit?: No
Condition: Fair
Covid-19: Not Applicable
Discharge Problem:
Gastritis
Instructions: Gastritis (DC)
Prescriptions:
New
omeprazole 40 mg capsule,delayed release(DR/EC)
40 mg PO BID Qty: 20 0RF
No Action
albuterol sulfate 2.5 mg /3 mL (0.083 %) solution for nebulization
2.5 mg inhalation QID PRN (Reason: shortness of breath or wheezing) Qty: 180 0RF
(DME) nebulizer and compressor Device
See Rx Instructions .Route Qty: 1 0RF
Rx Instructions:
As directed
vitamin B complex Capsule
1 cap PO DAILY
omeprazole magnesium [Prilosec OTC] 20 mg Tablet,Delayed Release (Dr/Ec)
40 mg PO DAILY
Referrals:
Cirilo Bai, [Family Provider, Family Practice] - Follow up in 2-3 days
Activity Restrictions/Additional Instructions:
Increase your omeprazole to twice a day on an empty stomach for the next 7 to 10 days. Avoid acidic foods. You can take Maalox which is [id number] 2 or 3 times a day as needed for additional symptoms. You should follow-up with a GI doctor
and consider an endoscopy for the symptoms. Should you have any worsening symptoms, inability to eat, fever, vomiting blood or black stool, chest pain or shortness of breath or new symptoms that are concerning you can return to the ER. Otherwise
please see your doctor
Interventions
Interventions:
*Risk Screen - Suicide Last Done: 05/10/25 19:11
*General Assessment Last Done: 05/10/25 19:18
*Neglect/Abuse Screening Last Done: 05/10/25 19:18
*ED- Fall Risk Assessment Last Done: 05/10/25 19:18
*ED COVID-19 Vaccine History Last Done: 05/10/25 19:18
*Nursing Disposition Last Done: 05/11/25 05:05
ZY-[id number]-[id number] Assessment Last Done: 05/11/25 00:34
Discharge Date and Time
Discharge Date/Time: 05/11/25 05:05
Print Language: CHINESE
[2025-05-11 00:17] VITALS: BMI 58.9
[2025-05-11] MEDS: TORADOL 30 MG IV (00:27)
[2025-05-11 00:31] VITALS: BP 145/87
[2025-05-11 01:05] LABS: Troponin I < 0.012 ng/ml
[2025-05-11 01:29] LABS: D-Dimer 0.35 ug/mlFEU (0.00-0.50)
[2025-05-11] MEDS: MAALOX 50 PO (03:53)
[2025-05-11 05:05] VITALS: BP 152/84
== END 2025-05-11 05:05 | disposition home or self-care (01) ==
LOC: EMR 19:10
PROVIDERS: Emergency Medicine; Physician Assistant; EMERGENCY PHYSICIAN Student in an Organized Health Care Education/Training Program; FAMILY PHYSICIAN Family Medicine
DX: K29.70 Gastritis, unspecified, without bleeding (principal); J45.909 Unspecified asthma, uncomplicated; K21.9 Gastro-esophageal reflux disease without esophagitis
CPT/HCPCS: 96374; 99284; 71046; 76700; 80053; 83690; 84484; 85025; 85379; 93005

== ENCOUNTER 2025-08-11 21:54 | Observation (INO) | payer OTHER, SELFPAY ==
[2025-08-11] VITALS (9 sets, daily range): BP systolic 130–175; BP diastolic 75–107; BMI 58.9; BMI 59.3
--- NOTE | 2025-08-11 16:40 | ED.GENMED ---
History of Present Illness
<LAVINIA Moody - Last Filed: 08/11/25 21:04>
General
Chief Complaint: Chest Pain
Source: patient
Exam Limitations: none
Time Seen by Provider: 08/11/25 16:37
Nursing documentation reviewed up to this point in time: agreed with
History of Present Illness
History of Present Illness:
Patient is a 45-year-old female presents to the ER for evaluation. She reports prior to arrival(1400) she was sitting at her desk and felt pain in the left side of face and left neck and felt shortness of breath and felt her vision was a little
blurry. She also felt a little disoriented and felt like she was having difficulty trying to tell her what was going on.
She does not feel disoriented now however she still has some discomfort in her face and neck. She denies any injury. No known cardiac disease. Significant cardiac history on her father's side.
She reports that she felt an episode of feeling disoriented earlier this week while at work she could not remember names of people at that time. She cannot remember the names of her coworkers. She also cannot member the code entrance to her
office.
She denies any associated headache. She denies any fever or chills. She however reports she does not feel herself.
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 She does a lot of sitting throughout the day with her jobs.
Past History
<LAVINIA Moody - Last Filed: 08/11/25 21:04>
Past History
ED Past Medical History: Asthma and GERD; Negative HTN, Hypercholesterolemia or NIDDM
ED Past Surgical History: (X 3) and Gynecological
Social History
Tobacco: Non-smoker
Alcohol: None
Drug: None
Personal:
Living: with family
Employment: Employed
Family History
Family History: CAD
Phy Exam
<LAVINIA Moody - Last Filed: 08/11/25 21:04>
General Physical Exam
General Presentation: no apparent distress
General age: appears stated age
General Skin: warm and dry
General Habitus: normal
General Mental: alert
General Hydration: appears well hydrated
Cardiovascular Exam
Cardiovascular Exam: regular rate/rhythm, no murmur and normal peripheral pulses
Pulmonary Exam
Pulmonary Exam: lungs clear and no respiratory distress
Neurological Exam
Neurological Exam: alert, oriented x3, no motor deficits, no sensory deficits and speech normal
Ryann Coma Scale
Eye Opening: Spontaneous
Verbal Response: Oriented
Motor Response: Obeys Commands
GCS Total Score: 15
Musculoskeletal Exam
Musculoskeletal Exam: full ROM
Skin Exam
Skin Exam: normal color and warm/dry
Psychiatric Exam
Psychiatric Exam: normal mood/affect
<Luis Felipe Hughes DO - Last Filed: 08/11/25 21:18>
Ryann Coma Scale
GCS Total Score: 15
Scores
<LAVINIA Moody - Last Filed: 08/11/25 21:04>
Heart Score for Chest Pain Patients
STEMI patient?: Not applicable
Course
<LAVINIA Moody - Last Filed: 08/11/25 21:04>
Orders/Labs/Results
Orders:
Orders
08/11/25 16:21
EKG [Electrocardiogram (*1)] Urgent
Reason for Study: Chest Pain
EKG- Treatment ONCE
08/11/25 16:29
Urinalysis Reflex To Culture Urgent
Date Specimen was Collected: 08/11/25
Time Specimen was Collected: 16:21
08/11/25 17:02
CT Head W/o Iv Contrast Urgent
Comment:
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
Cardiac Monitoring- Treatment ONCE
IV Insert/Care/Rem.- Treatment PRN
CR Chest - 2 Views Urgent
Comment:
Reason For Exam: cp
08/11/25 17:04
Complete Blood Count/With Diff Urgent
Comprehensive Metabolic Panel Urgent
Troponin I Urgent
08/11/25 18:52
EKG- Treatment ONCE
08/11/25 19:54
Troponin I Urgent
08/11/25 20:00
Electrocardiogram (*1) Urgent
Reason for Study: Chest Pain
Abnormal Lab Results
08/11/25
17:04
WBC 12.1 H 10^3/uL
(4.8-10.8)
RBC 6.16 H 10^6/uL
(4.20-5.40)
Hgb 10.6 L g/dL
(12.0-16.0)
Hct 36.6 L %
(37.0-47.0)
MCV 59.4 L fL
(81.0-99.0)
MCH 17.2 L pg
(27.0-31.0)
MCHC 29.0 L g/dL
(33.0-37.0)
RDW 19.4 H %
(11.5-14.5)
Absolute Neuts (auto) 7.7 H 10^3/uL
(1.4-6.5)
Absolute Monos (auto) 0.8 H 10^3/uL
(0.1-0.6)
08/11/25 17:04
08/11/25 17:04
Vital Signs
Initial and Last Documented VS:
Initial Vital Signs
Temp Pulse Resp BP Pulse Ox
98.2 F 93 16 175/107 99
08/11/25 16:15 08/11/25 16:15 08/11/25 16:15 08/11/25 16:15 08/11/25 16:15
Last Documented Vital Signs
Temp Pulse Resp BP Pulse Ox
98.2 F 86 14 147/77 98
08/11/25 16:15 08/11/25 19:00 08/11/25 19:00 08/11/25 19:00 08/11/25 19:00
Contract Recruiter consulted with Physician
Contract Recruiter consulted with physician?: Yes
Name of Physician Consulted: Ellen
<Luis Felipe Hughes, DO - Last Filed: 08/11/25 21:18>
Orders/Labs/Results
Orders:
Orders
08/11/25 16:21
EKG [Electrocardiogram (*1)] Urgent
Reason for Study: Chest Pain
EKG- Treatment ONCE
08/11/25 16:29
Urinalysis Reflex To Culture Urgent
Date Specimen was Collected: 08/11/25
Time Specimen was Collected: 16:21
08/11/25 17:02
CT Head W/o Iv Contrast Urgent
Comment:
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
Cardiac Monitoring- Treatment ONCE
IV Insert/Care/Rem.- Treatment PRN
CR Chest - 2 Views Urgent
Comment:
Reason For Exam: cp
08/11/25 17:04
Complete Blood Count/With Diff Urgent
Comprehensive Metabolic Panel Urgent
Troponin I Urgent
08/11/25 18:52
EKG- Treatment ONCE
08/11/25 19:54
Troponin I Urgent
08/11/25 20:00
Electrocardiogram (*1) Urgent
Reason for Study: Chest Pain
Abnormal Lab Results
08/11/25
17:04
WBC 12.1 H 10^3/uL
(4.8-10.8)
RBC 6.16 H 10^6/uL
(4.20-5.40)
Hgb 10.6 L g/dL
(12.0-16.0)
Hct 36.6 L %
(37.0-47.0)
MCV 59.4 L fL
(81.0-99.0)
MCH 17.2 L pg
(27.0-31.0)
MCHC 29.0 L g/dL
(33.0-37.0)
RDW 19.4 H %
(11.5-14.5)
Absolute Neuts (auto) 7.7 H 10^3/uL
(1.4-6.5)
Absolute Monos (auto) 0.8 H 10^3/uL
(0.1-0.6)
08/11/25 17:04
08/11/25 17:04
Vital Signs
Initial and Last Documented VS:
Initial Vital Signs
Temp Pulse Resp BP Pulse Ox
98.2 F 93 16 175/107 99
08/11/25 16:15 08/11/25 16:15 08/11/25 16:15 08/11/25 16:15 08/11/25 16:15
Last Documented Vital Signs
Temp Pulse Resp BP Pulse Ox
98.2 F 86 14 147/77 98
08/11/25 16:15 08/11/25 19:00 08/11/25 19:00 08/11/25 19:00 08/11/25 19:00
<LAVINIA Moody - Last Filed: 08/11/25 21:04>
MDM/Problems Addressed
Differential Diagnosis Includes:
not limited to: ACS, TIA
MDM/Problems Addressed:
Patient is a 41-year-old female who presented to ER complaining of pain to left face left neck and mild shortness of breath sitting at her desk prior to arrival. No actual chest pain. In addition however she felt like she difficulty telling her
hospital was going on. The similar episode occurred couple days ago while at work she cannot remember her coworkers names and remember the code to get in her office to her. She presents awake alert no acute distress normal neurological exam 2
negative troponins were done in the ER with normal EKG. Case reviewed with ED physician. Case reviewed with neurologist he does recommend MRI and EEG. Will recommend admission TIA /versus seizure for furhter work up
<LAVINIA Moody - Last Filed: 08/11/25 21:04>
*Radiology
Radiology exam reviewed: radiology read reviewed
*Pulse Oximetry
SaO2: 99
Oxygen Mode of Delivery: Room air
Patient hypoxic: no
*EKG
Interpreted by ED Provider?: Yes
Interpretation: normal
Heart Rate: 86
Rate: normal
Rhythm: sinus
Ischemia: other (repeat EKG unchanged )
*Critical Care Note
Total Time (30-74mins, 75-104mins- exclusive of procedures): Not Applicable
<LAVINIA Moody - Last Filed: 08/11/25 21:04>
Patient Management
Discussion with other providers: Commercial Solar Sales Consultant (neuro DR Valiente )
ED Attending Note
<LAVINIA Moody - Last Filed: 08/11/25 21:04>
-
Portions of this chart may have been created with voice recognition software.� Occasional wrong word or��sound alike� substitutions may have occurred due to the inherent limitations of voice recognition software.
<Luis Felipe Hughes DO - Last Filed: 08/11/25 21:18>
ED Attending Note
Patient seen and examined by attending physician: Yes
ED Attending Note:
I reviewed and agree with history and treatment plan by LAVINIA Garzon. My exam revealed
Physical Exam
General: no apparent distress, not acutely ill
Neck: supple. no meningeal signs. normal posterior pharynx
Heart: s1/s2 regular rate and rhythm, no murmur. equal radial
pulses.
HEENT: Pupils equal round reactive to light, EOMI
Lungs: no acute respiratory distress. clear bilaterally
Abdomen: normal bowel sounds. not tender. no CVAT
Neuro: alert and oriented. no focal neurological deficits cranial nerves II through XII intact
Skin: no rash
Psychiatric: well kept. interactive and cooperative
Extremities: no edema. no calf tenderness. negative homans. good distal pulses
Symptoms concerning for seizure versus TIA. Admit to hospitalist for further evaluation. MRI and EEG.
Discharge Plan
Departure
Patient Disposition: Admit
Date of Disposition: 08/11/25
Time of Disposition: 21:03
Admit to: Telemetry
Admit to doctor: hospitalist
Presentation/result/management discussed w/ accepting MD/DO: Hospitalist
Patient with high blood pressure during this ER visit?: No
Covid-19: Not Applicable
Discharge Problem:
Mental status change resolved
Prescriptions:
No Action
omeprazole 40 mg capsule,delayed release(DR/EC)
40 mg PO DAILY
Referrals:
Cirilo Bai, [Family Provider, Family Practice]
Interventions
Interventions:
*Risk Screen - Suicide Last Done: 08/11/25 16:15
*General Assessment Last Done: 08/11/25 17:32
*Neglect/Abuse Screening Last Done: 08/11/25 16:15
*ED- Fall Risk Assessment Last Done: 08/11/25 16:15
*ED COVID-19 Vaccine History Last Done: 08/11/25 17:22
*ED Influenza Vaccine History Last Done: 08/11/25 17:22
ED- Pulmonary Assessment Last Done: 08/11/25 17:33
ED- Neurological Assessment Last Done: 08/11/25 17:33
ED- Cardiac Assessment Last Done: 08/11/25 17:33
ED Swallowing Screen Last Done: 08/11/25 17:33
Discharge Date and Time
Print Language: MONTENEGRIN
[2025-08-11 16:50] LABS: Urine Character Clear (Clear)
[2025-08-11 17:10] LABS: Hematocrit 36.6 % (37.0-47.0); Hemoglobin 10.6 g/dL (12.0-16.0); Mean Corp Hgb Conc. 29.0 g/dL (33.0-37.0); Mean Corpuscular Volume 59.4 fL (81.0-99.0); Nucleated Red Blood Cells % 0 %; Platelet Count 319 10^3/uL (130-400); Red Cell Dist. Width 19.4 % (11.5-14.5)
[2025-08-11 17:35] LABS: ALT (SGPT) 24 U/L (0-35); AST (SGOT) 23 U/L (14-36); Albumin 4.2 g/dl (3.5-5.0); Alkaline Phosphatase 72 U/L (38-126); Blood Urea Nitrogen 17 mg/dl (7-17); Calcium 9.0 mg/dl (8.4-10.2); Carbon Dioxide 30 mmol/L (22-30); Chloride 103 mmol/L (98-107); Estimated Creatinine Clearance > 125 ml/min; Glucose 89 mg/dl (70-99); Potassium 4.2 mmol/L (3.5-5.1); Sodium 139 mmol/L (135-145); Total Protein 7.2 g/dl (6.3-8.2); eGFR > 60.00
[2025-08-11 17:41] LABS: Troponin I < 0.012 ng/ml
[2025-08-11 20:28] LABS: Troponin I < 0.012 ng/ml
--- NOTE | 2025-08-11 21:46 | HPS.HSE ---
Addendum entered and electronically signed by Felix Alarcon DO 08/11/25 22:14:
Patient seen and examined independently. Agree with findings and dawkins as set forth by Vianey Dunlap PA-C.
Patient is a 45y F with PMH significant for thalassemia trait and morbid obesity who presents to ED complaining of confusion, word-finding difficulties and L sided headache / neck pain. Patient states that she had an episode at work on Wednesday
where she could not recall co-worker's name or enter her password, etc. She felt very confused. Episode last about 10-15 minutes. She then felt well until today when she had a second episode of similar symptoms - this time accompanied by pain in
the left neck and face. This episode lasted about 15-20 minutes. Since arrival to the ED, patient feels that she is back at her baseline.
She has prior history of migraine headaches - but never with any symptoms such as these.
She has family history of early CAD (father with DE in his 30s).
Ass:
Confusion / Expressive Aphasia
Thalassemia Trait / Chronic Anemia
GERD
Morbid Obesity due to excess calories
Plan:
Observe overnight for further evaluation and treatment.
Monitor for any new / recurrent symptoms.
Neurology consulted in ED for additional recommendations.
MRI with and without contrast, EEG ordered per Neuro recs.
ASA daily for now.
Check iron studies to rule out component of iron deficiency superimposed on chronic thalassemia.
Original Note:
Family Physician
-
Family Physician: Cirilo Bai
Chief Complaint
-
Confusion
History of Present Illness
Patient is a 45 y/o female past medical history of GERD and Thalassemia trait who present with confusion and other neurologic symptoms. Patient reports around 2PM she developed left sided face and neck pain which was associated with blurry vision.
She states she felt disoriented and was having difficulty with her speech stating she could get the words out to the her what was wrong. She states she continue with some mild neck pain, but reports other symptoms have resolved. She reports
an episode earlier this week which was similar in that she could not remember the code to get into her office, and could not remember her co-workers name. Patient reports a prior history of migraines but states this is not her typical migraine
symptoms which involved severe frontal headache with associated photophobia
Medical History
Past Medical History
Past Medical History: Reports Other
Additional Past Medical History:
GERD
Thalassemia Trait
Past Surgical History: Reports Other
Additional Past Surgical History:
Section
Tubal Ligation
LASIK Eye Surgery
Social History
Tobacco: Non-smoker
Alcohol: None
Family History
Family History: Early CAD (Father: DE in his 30s)
Allergies / Home Medications
Allergies reflects when Allergies were last updated in [facility].
Home Medications with original date entered in [facility]
Allergy/Medication List:
Allergies
Allergy/AdvReac Type Severity Reaction Status Date / Time
No Known Allergies Allergy Verified 08/11/25 16:18
Home Medications
omeprazole 40 mg capsule,delayed release 40 mg PO DAILY 08/11/25
Review of Systems
-
A 12 point ROS was completed and negative except as noted: Yes
Constitutional: Denies Fever or Chills
Respiratory: Denies Cough
Cardiac: Denies Chest Pain or Palpitations
Physical Exam
Vital Signs
Vital Signs
Temp Pulse Resp BP Pulse Ox
98.2 F 86 14 147/77 98
08/11/25 16:15 08/11/25 19:00 08/11/25 19:00 08/11/25 19:00 08/11/25 19:00
Physical Exam
General: Comfortable and Conversant
HEENT: Anicteric and Moist mucous membranes
Respiratory: Clear and Non Labored Respirations
Cardiac: S1/S2 and Regular Rhythm
GI: Soft and Non Tender
Rectal: Deferred by Provider
Musculoskeletal: No Clubbing, No Cyanosis and No Edema
Skin: Warm and Dry
Neuro: Awake, Alert, Oriented and No Motor Deficits; No Slurred Speech or Facial Droop
Psych: Calm
Laboratory Results
-
08/11/25 17:04
08/11/25 17:04
Laboratory Results
Total Bilirubin 0.4 mg/dl (0.2-1.3) 08/11/25 17:04
AST 23 U/L (14-36) 08/11/25 17:04
ALT 24 U/L (0-35) 08/11/25 17:04
Alkaline Phosphatase 72 U/L (38-126) 08/11/25 17:04
Troponin I < 0.012 ng/ml 08/11/25 19:54
Data Reviewed
-
CT Scan: Report Reviewed by me
Lab Data: Labs Reviewed by me
Impression/Plan
-
Recurrent Episodes of Confusion / Expressive Aphasia
-Consult Neurology
-Check Brain MRI with and without contrast
-Check EEG
-Start aspirin
Thalassemia Trait
-Hgb slightly lower than previous with very low MCV
-Check iron studies
GERD
-Continue Protonix
Morbid Obesity due to excess calories
-Encourage weight loss
-Affects all aspects of care
DVT proph: SCDs
Code Status:
[2025-08-11 22:15] LABS: Iron 44 ug/dl (37-170)
[2025-08-11 22:25] LABS: Total Iron Binding Capacity 435 ug/dl (265-497)
[2025-08-11 22:53] LABS: Ferritin 16.7 ng/ml (6.24-137)
[2025-08-11 23:24] LABS: Folate 10.4 ng/ml (2.76-20); Vitamin B12 834 pg/ml (239-931)
--- NOTE | 2025-08-11 23:47 | PTCARENOTE ---
Receive pt from ER. Pt alert oriented X3, calm and cooperative, in no distress. Pt assist X1 to bed, steady gate. Pt oriented to the room, call pelaez within reach. Pt on NSR on telemonitor. VSS (T=98.3, HR=92, RR=20, RZ=890/86, SpO2=95% on RA).
NIH=0. Stroke packet given. Will continue to monitor the pt.
[2025-08-12] VITALS (7 sets, daily range): BP systolic 107–169; BP diastolic 65–90; PULSE 83–87; O2SAT 94–95
[2025-08-12 05:58] LABS: Hematocrit 35.6 % (37.0-47.0); Hemoglobin 10.6 g/dL (12.0-16.0); Mean Corp Hgb Conc. 29.8 g/dL (33.0-37.0); Mean Corpuscular Volume 58.3 fL (81.0-99.0); Platelet Count 316 10^3/uL (130-400); Red Cell Dist. Width 19.1 % (11.5-14.5)
[2025-08-12 06:22] LABS: Blood Urea Nitrogen 14 mg/dl (7-17); Calcium 8.8 mg/dl (8.4-10.2); Carbon Dioxide 29 mmol/L (22-30); Chloride 103 mmol/L (98-107); Estimated Creatinine Clearance > 125 ml/min; Glucose 109 mg/dl (70-99); HDL Cholesterol 36 mg/dl; LDL Cholesterol, Calculated 110 mg/dl; Magnesium 2.0 mg/dl (1.6-2.3); Potassium 4.1 mmol/L (3.5-5.1); Sodium 138 mmol/L (135-145); Very Low Density Lipoprotein 17 mg/dl (0-30); eGFR > 60.00
[2025-08-12] MEDS: LOW STRENGTH ASPIRIN 81 MG PO (08:26)
[2025-08-12] MEDS: PROTONIX 40 MG PO (08:26)
--- NOTE | 2025-08-12 08:37 | CON.NEURO4 ---
Consultation - Neurology 4
-
CONSULTING PHYSICIAN: Dr. Erik Valiente
REFERRING PHYSICIAN: Michelle KATE
DICTATED BY: Dr. Erik Valiente
DATE/TIME OF REQUEST: 08/12/2025
DATE/TIME OF CONSULTATION: 08/12/2025
Reason for Consultation: Speech difficulty, Visual disturbance
ASSESSMENT AND PLAN:
The patient is a 45 years old female, who presented to the ER for evaluation of blurry vision, feeling disoriented and having difficulty in trying to tell her what was going on. 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 She also complained of a migraine headache today.
The workup is being done for possible TIA. The patient may also benefit from a Psychiatry consult as she appears to be under a lot of stress at home and at work.
. CT head did not show acute intracranial abnormality.
. CTA head and neck.
. MRI brain without IV contrast (Patient went for MRI brain but could not tolerate it).
The patient reportedly left the hospital without having the MRI done. She wanted to have the test done where an Open MRI is available. Other workup including echocardiogram is pending.
Follow up with Neurology as an outpatient.
. Echocardiogram.
History of Present Illness:
The patient is a 45 years old female, who presented to the ER for evaluation of blurry vision, feeling disoriented and having difficulty in trying to tell her what was going on. She also had an episode earlier this week while at work when
she could not remember names of people at work. She also forgot the code for entrance to her office. She denies any fever or chills.
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 She does a lot of sitting throughout the day with her jobs.
Past Medical History: GERD. She denies HTN, DM or hypercholesterolemia.
Review of Systems:
The 10 point ROS was negative aside from as given in the history of present illness above.
Neurologic Examination:
Alert and oriented x 3,
Speech is clear,
Cranial Nerves II-XII are grossly intact,
The motor strength is grossly 5/5 bilaterally in upper and lower extremities,
The sensation is grossly intact,
The cerebellar examination does not show a limb ataxia.
Vital Signs and Labs
-
Vital Signs and Labs:
Vital Signs
Temp Pulse Resp BP Pulse Ox
36.6 C 73 16 142/72 97
08/12/25 08:12 08/12/25 08:12 08/12/25 08:12 08/12/25 08:12 08/12/25 08:12
Lab Results
08/12/25 05:33
08/12/25 05:33
Sodium 138 mmol/L (135-145) 08/12/25 05:33
Potassium 4.1 mmol/L (3.5-5.1) 08/12/25 05:33
BUN 14 mg/dl (7-17) 08/12/25 05:33
Glucose 109 mg/dl (70-99) H 08/12/25 05:33
Calcium 8.8 mg/dl (8.4-10.2) 08/12/25 05:33
LDL Cholesterol, Calc 110 mg/dl 08/12/25 05:33
Vitamin B12 834 pg/ml (239-931) 08/11/25 17:04
Medications
-
Active Medications
Generic Name Dose Route Start Last Admin
Trade Name Freq PRN Reason Stop Dose Admin
Acetaminophen 650 mg 08/11/25 22:26
Acetaminophen 650 Mg Rectal Suppository RECTAL 09/08/25 22:25
Q4HPRN PRN
MISHRA, mild pain, or temp >100.4F
Acetaminophen 650 mg 08/11/25 22:26
Acetaminophen 325 Mg Tablet PO 09/08/25 22:25
Q4HPRN PRN
MISHRA, mild pain, or temp >100.4F
Aspirin 81 mg 08/12/25 08:00 08/12/25 08:26
Aspirin 81 Mg Chewable Tablet PO 09/09/25 07:59 81 mg
DAILY HUBER Administration
Diazepam 2 mg 08/13/25 07:00
Diazepam 10 Mg/2 Ml Inj IV 08/13/25 07:01
ONCE ONE
Pantoprazole Sodium 40 mg 08/12/25 08:00 08/12/25 08:26
Pantoprazole 40 Mg Delayed Release Tablet PO 09/09/25 07:59 40 mg
DAILY HUBER Administration
Sodium Chloride 0 flush 08/11/25 23:00
Sodium Chloride 0.9% (Flush) Syringe IV 09/08/25 22:59
PER PROTOCOL HUBER
Home Medications
�Medication �Instructions �Recorded
omeprazole 40 mg capsule,delayed 40 mg PO DAILY GERD 08/11/25
release
--- NOTE | 2025-08-12 09:10 | PTOTSP ---
Speech Language Pathology
Pt seen for cognitive-linguistic evalutions. Quick Aphasia Battery (QAB), form 1, administered. Pt with an overall score of 9.83, indicative of skills WNL. Pt scored WNL on all subtests. Also provided Khalif Cognitive Assessment (MOCA),
version 8.2. Pt with an overall score of 28/30 where normal range is 26-30. Pt scored WNL. No dysarthria noted. Pt reported she is back to baseline.
FOUNDRY TECHNICIAN to sign off. Please reconsult as indicated.
[2025-08-12 10:02] LABS: Glycohemoglobin (HgbA1c) 6.2 % (4.0-5.9)
--- NOTE | 2025-08-12 12:19 | CM ---
Consult received for discharge planning, TIA/Stroke concern. Pt evaluated by PT and OT; pt's symptoms have resolved and she is back to baseline (I) amb and adls.
Pt lives in a 2 story home with 3+1 entry steps with her and 3 children. DIRECTOR OF PATIENT CARE pt reports being (I) amb and adls.
Plan: Discharge to home with no identified needs.
[2025-08-12] MEDS: VALIUM INJECTION 2.5 MG IV (12:21)
--- NOTE | 2025-08-12 12:34 | W.PN.HOSP.TC ---
Today's Communication/Plan
-
Follow-up CT head and neck and MRI brain
Possible discharge later today
Assessment / Plan
Assessment / Plan
Recurrent Episodes of Confusion / Expressive Aphasia
-CT head without any acute issues
-Neurology recommended CTA head and neck and MRI brain without contra
-Lipid profile normal. Hemoglobin A1c pending
-Check Brain MRI with and without contrast
-Check EEG
-Start aspirin
Pre-diabetes - new dx
-a1c of 6.2
-will discuss with pt and will require lifestyle modification
Thalassemia Trait
-Hemoglobin slightly lower than baseline
GERD
-Continue Protonix
Morbid Obesity due to excess calories
-Encourage weight loss
-Affects all aspects of care
Migraine
-Compazine trial, if not improved can be provided Toradol/Benadryl per neurology
DVT proph: SCDs
Code Status:
Anticipated Discharge: Today
Subjective/Interval History
-
Date of Service: August 12, 2025
No reported current neurological symptoms
No other new issues
Objective Data
-
Labs:
Laboratory Results
08/12/25
05:33
WBC 9.8
Hgb 10.6 L
Hct 35.6 L
Plt Count 316
Sodium 138
Potassium 4.1
Chloride 103
Carbon Dioxide 29
BUN 14
Creatinine 0.7
Glucose 109 H
Calcium 8.8
Vital Signs:
Vital Signs
Temp Pulse Resp BP Pulse Ox
97.8 F 80 18 107/65 95
08/12/25 11:53 08/12/25 11:53 08/12/25 11:53 08/12/25 11:53 08/12/25 11:53
I&O
08/11/25 08/12/25 08/13/25
06:59 06:59 06:59
Intake Total 480 / 480 240 / 240
Balance 480 / 480 240 / 240
Review of Systems
-
Respiratory: Reports No Symptoms
Cardiac: Reports No Symptoms
Abdomen/GI: Reports No Symptoms
Physical Exam
-
General: Obese; Negative Appears in Distress
HEENT: Negative Oxygen
Cardiac: Regular Rhythm and S1/S2; Negative Murmur
Neuro: Awake, Alert, Oriented and No Motor Deficits
--- NOTE | 2025-08-12 13:47 | PTCARENOTE ---
Patient unable to tolerate MRI d/t anxiety despite Valium given as pre med. Neuro and hospitalist aware
[2025-08-12] MEDS: COMPAZINE 10 MG IV (13:50)
--- NOTE | 2025-08-12 15:55 | PTCARENOTE ---
Called into patients room as requested. Pt and pt's found an outpatient 'open' MRI appointment that will better suit her as she has claustrophobia. Pt has had no cva/seizure symptoms since arrival to . RN relayed patients request to go
home to neurologist and internal medicine team- plan is to 'dc her on aspirin, Plavix and statin and to follow up with Neurology as outpatient. Needs to complete work up for TIA including echocardiogram.'
== END 2025-08-12 16:38 | disposition home or self-care (01) ==
LOC: 4 EAST ACU 21:54
PROVIDERS: Emergency Medicine; Nurse Practitioner; Physician Assistant Medical; ADMITTING PHYSICIAN Hospitalist; ATTENDING PHYSICIAN Hospitalist; CONSULT PHYSICIAN Psychiatry & Neurology Neurology; EMERGENCY PHYSICIAN Emergency Medicine; FAMILY PHYSICIAN Family Medicine
DX: R41.0 Disorientation, unspecified (principal); R47.01 Aphasia; D56.3 Thalassemia minor; R73.03 Prediabetes; K21.9 Gastro-esophageal reflux disease without esophagitis; E66.01 Morbid (severe) obesity due to excess calories; Z68.43 Body mass index [BMI] 50.0-59.9, adult; G43.909 Migraine, unspecified, not intractable, without status migrainosus; Z79.899 Other long term (current) drug therapy; Z79.82 Long term (current) use of aspirin; Z56.3 Stressful work schedule; Z63.79 Other stressful life events affecting family and household
CPT/HCPCS: 70450; 71046; 80048; 80053; 80061; 81003; 82607; 82728; 82746; 83036; 83540; 83550; 83735; 84484; 85025; 85027; 92523; 93005; 97161; 97165; 99285; G0378

== ENCOUNTER 2025-08-31 15:52 | Emergency (ER) | payer OTHER, SELFPAY ==
[2025-08-31 16:11] VITALS: BP 186/109
[2025-08-31 16:34] LABS: Hematocrit 37.9 % (37.0-47.0); Hemoglobin 11.1 g/dL (12.0-16.0); Mean Corp Hgb Conc. 29.3 g/dL (33.0-37.0); Mean Corpuscular Volume 58.2 fL (81.0-99.0); Nucleated Red Blood Cells % 0 %; Platelet Count 346 10^3/uL (130-400); Red Cell Dist. Width 19.8 % (11.5-14.5)
[2025-08-31 16:47] LABS: HCG, Serum Qualitative Screen Negative
[2025-08-31 16:56] LABS: COVID-19 Antigen Negative (Negative)
[2025-08-31 16:58] LABS: ALT (SGPT) 43 U/L (0-35); AST (SGOT) 31 U/L (14-36); Albumin 4.4 g/dl (3.5-5.0); Alkaline Phosphatase 78 U/L (38-126); Blood Urea Nitrogen 16 mg/dl (7-17); Calcium 9.4 mg/dl (8.4-10.2); Carbon Dioxide 31 mmol/L (22-30); Chloride 104 mmol/L (98-107); Glucose 120 mg/dl (70-99); Potassium 3.6 mmol/L (3.5-5.1); Sodium 139 mmol/L (135-145); Total Protein 7.8 g/dl (6.3-8.2); eGFR > 60.00
[2025-08-31 18:37] VITALS: BMI 60.1
[2025-08-31] MEDS: DUONEB 3 ML INH (19:44)
[2025-08-31 19:52] VITALS: BP 133/72
[2025-08-31 20:00] VITALS: BP 133/76
[2025-08-31 20:10] LABS: D-Dimer 0.41 ug/mlFEU (0.00-0.50)
[2025-08-31 20:21] LABS: Troponin I < 0.012 ng/ml
[2025-08-31 20:30] VITALS: BP 136/72
[2025-08-31] MEDS: NSS 1000 IV (20:38)
--- NOTE | 2025-08-31 22:40 | ED.GENMED ---
History of Present Illness
General
Chief Complaint: Chest Pain
Source: patient
Exam Limitations: none
Time Seen by Provider: 08/31/25 18:19
History of Present Illness
History of Present Illness:
45-year-old female presents for evaluation of chest discomfort. She states she had an asthma attack earlier today which she took an inhaler and nebulizer at home. She then developed chest tightness shortly following. The pain is different than
what she would normally experience with her asthma. She denies any recent travel or surgery. No new leg swelling or calf pain. She is not on any hormones. She does not smoke. No other complaints
Past History
Past History
ED Past Medical History: Asthma and GERD; Negative HTN, Hypercholesterolemia or NIDDM
ED Past Surgical History: (X 3) and Gynecological
Social History
Tobacco: Non-smoker
Alcohol: None
Drug: None
Personal:
Living: with family
Employment: Employed
Family History
Family History: CAD
Phy Exam
Physical Exam
Physical Exam:
General: Well-appearing female no acute respiratory distress
HEENT: Normal cephalic atraumatic heart: Regular rate and rhythm
Lungs: Subtle wheeze at the base upon inspiration patient cold abdomen is soft nontender
Skin warm no rash
Extremities: No cyanosis
Scores
Heart Score for Chest Pain Patients
STEMI patient?: No
History: Slightly or Non-Suspicious
ECG: Normal
Age: >45 - <65 years
Risk Factors: 1 or 2 Risk Factors
Troponin: </= Normal Limit
Heart Score for Chest Pain Patients: 2
Heart Score Risk: 2.5% MACE over next 6 weeks
Course
Orders/Labs/Results
Orders:
Orders
08/31/25 15:53
ECG [Electrocardiogram (*1)] Urgent
Reason for Study: Chest Pain
EKG- Treatment ONCE
08/31/25 16:15
Test Result ONCE
08/31/25 16:25
COVID-19 Antigen Urgent
Source: Nasal Swab
Complete Blood Count/With Diff Urgent
Comprehensive Metabolic Panel Urgent
HCG, Serum Qualitative Screen Urgent
Influenza A+B Rapid Molecular Urgent
CANDIDA Source: Nasal Swab
Specimen Description:
08/31/25 19:01
Ipratropium/Albuterol Sulfate [Duoneb] 3 ml INH R NOW ONE
08/31/25 19:28
D-Dimer Urgent
Troponin I Urgent
08/31/25 20:37
0.9% Sodium Chloride 1000 ml [Nss] 1,000 ml IV BOLUS
08/31/25 20:42
CR Chest - 2 Views Stat
Comment:
Reason For Exam: chest pain
Abnormal Lab Results
08/31/25
16:25
WBC 13.1 H 10^3/uL
(4.8-10.8)
RBC 6.51 H 10^6/uL
(4.20-5.40)
Hgb 11.1 L g/dL
(12.0-16.0)
MCV 58.2 L fL
(81.0-99.0)
MCH 17.1 L pg
(27.0-31.0)
MCHC 29.3 L g/dL
(33.0-37.0)
RDW 19.8 H %
(11.5-14.5)
Absolute Neuts (auto) 9.2 H 10^3/uL
(1.4-6.5)
Absolute Monos (auto) 0.8 H 10^3/uL
(0.1-0.6)
Carbon Dioxide 31 H mmol/L
(22-30)
Glucose 120 H mg/dl
(70-99)
ALT 43 H U/L
(0-35)
08/31/25 16:25
08/31/25 16:25
Vital Signs
Initial and Last Documented VS:
Initial Vital Signs
Temp Pulse Resp BP Pulse Ox
97.6 F 111 24 186/109 100
08/31/25 16:11 08/31/25 16:11 08/31/25 16:11 08/31/25 16:11 08/31/25 16:11
Last Documented Vital Signs
Temp Pulse Resp BP Pulse Ox
97.6 F 79 13 186/109 99
08/31/25 16:11 08/31/25 18:41 08/31/25 18:36 08/31/25 16:11 08/31/25 18:40
MDM/Problems Addressed
Differential Diagnosis Includes:
Chest pain. Patient experienced asthma today. Consider discomfort from asthma versus bronchospasm versus ACS versus PE
D-dimer was ordered which was noted within normal limits. Troponin x 2 undetectable. Chest x-ray clear. Patient given DuoNeb here and is feeling much better. Suspect asthma exacerbation
*Pulse Oximetry
SaO2: 99
Oxygen Mode of Delivery: Room air
Patient hypoxic: no
*Critical Care Note
Total Time (30-74mins, 75-104mins- exclusive of procedures): Not Applicable
ED Attending Note
-
Portions of this chart may have been created with voice recognition software.� Occasional wrong word or��sound alike� substitutions may have occurred due to the inherent limitations of voice recognition software.
Discharge Plan
Departure
Patient Disposition: Home (Routine Discharge)
Date of Disposition: 08/31/25
Time of Disposition: 22:42
Patient with high blood pressure during this ER visit?: No
Discharge Problem:
Asthma exacerbation
Instructions: Asthma in adults - ED (DC)
Prescriptions:
New
ipratropium-albuterol 0.5 mg-3 mg(2.5 mg base)/3 mL solution for nebulization
3 ml inhalation Q6H PRN (Reason: wheezing) Qty: 90 0RF
prednisone 20 mg tablet
40 mg PO DAILY 5 Days Qty: 10 0RF
No Action
omeprazole 40 mg capsule,delayed release(DR/EC)
40 mg PO DAILY
aspirin 81 mg Tablet,Chewable
81 mg PO DAILY Qty: 30 0RF
clopidogrel [Plavix] 75 mg tablet
75 mg PO DAILY Qty: 21 0RF
atorvastatin [Lipitor] 40 mg tablet
40 mg PO QPM Qty: 30 0RF
Referrals:
Cirilo Bai DO [Family Provider, Family Practice]
Activity Restrictions/Additional Instructions:
Use nebulizer as needed. Use prednisone as directed. Stay hydrated. Return if worse otherwise follow-up with your doctor
Interventions
Interventions:
*Risk Screen - Suicide Last Done: 08/31/25 16:11
*General Assessment Last Done: 08/31/25 16:11
*Neglect/Abuse Screening Last Done: 08/31/25 16:11
*ED COVID-19 Vaccine History Last Done: 08/31/25 18:39
*ED Influenza Vaccine History Last Done: 08/31/25 18:39
[facility] Fall Risk Assessment Tool Last Done: 08/31/25 18:37
ED- Cardiac Assessment Last Done: 08/31/25 18:39
Discharge Date and Time
Print Language: BELARUSIAN
== END 2025-08-31 23:02 | disposition home or self-care (01) ==
LOC: EMR 15:52
PROVIDERS: Physician Assistant; EMERGENCY PHYSICIAN Emergency Medicine; FAMILY PHYSICIAN Family Medicine
DX: J45.901 Unspecified asthma with (acute) exacerbation (principal); Z11.52 Encounter for screening for COVID-19
CPT/HCPCS: 99285; 94640; 96360; 71046; 80053; 84484; 84703; 85025; 85379; 87502; 87811; 93005